=== PATIENT | female | born 1990 | race Caucasian/White ===

== ENCOUNTER 2023-03-05 06:11 | Emergency (ER) | payer OTHER ==
[2023-03-05 07:39] LABS: #Eosinphils 0.1 10x3/uL (0.0-0.5); #Monocytes 0.4 10x3/uL (0.0-1.1); #Neutrophils 3.7 10x3/uL (1.5-8.4); %Basophils 0.2 % (0.0-2.0); %Lymphocytes 27.6 % (18.0-47.0); %Monocytes 7.3 % (0.0-10.0); %Neutrophils 62.7 % (40.0-75.0); Hemoglobin 11.9 g/dL (12.0-15.5); Mean Corpuscular HGB CONC 32.6 g/dL (32.0-36.0); Mean Corpuscular Volume 91.9 fl (81.6-98.3); Mean Platelet Volume 10.1 fl (7.4-10.4); Platelet Count 227 10x3/uL (150-450); RBC Distribution Width 12.8 % (11.5-14.5); Red Blood Cell (RBC) Count 3.97 10x6/uL (3.90-5.03); White Blood Cell (WBC) Count 5.9 10x3/uL (3.5-10.5)
[2023-03-05 08:02] LABS: BHCG - Serum POSITIVE (NEGATIVE)
[2023-03-05 08:03] LABS: Pregs Control Background? CLEAR/WHITE (CLR/WHITE); Pregs Control Bar Appear? YES (CONTROL BAR)
[2023-03-05 08:13] LABS: ALT (SGPT) 10 U/L (8-55); AST (SGOT) 13 U/L (5-34); Albumin 3.7 g/dL (3.5-5.0); Alkaline Phosphatase 72 U/L (40-110); Anion Gap 12 mmol/L (10-20); BUN (Urea Nitrogen) 13 mg/dL (7.0-18.7); Bilirubin, Total 0.3 mg/dL (0.2-1.2); Calc. Creatinine Clearance 0 mL/min (70-130); Calcium 9.1 mg/dL (7.8-10.44); Carbon Dioxide 25 mmol/L (22-29); Chloride 108 mmol/L (98-107); Estimated GFR 120; Globulin 2.6 g/dL (2.4-3.5); Glucose 85 mg/dL (70-105); Potassium 4.1 mmol/L (3.5-5.1); Protein, Total 6.3 g/dL (6.0-8.3); Sodium 141 mmol/L (136-145)
== END 2023-03-05 08:41 | disposition home or self-care (01) ==
LOC: CSHERS 06:11
DX: O72.1 Other immediate postpartum hemorrhage (principal)
CPT/HCPCS: 76856; 80053; 84703; 85025; 86850; 86900; 86901

== ENCOUNTER 2023-03-07 13:46 | Emergency (ER) | payer OTHER ==
[2023-03-07] MEDS ORDERED: Lorazepam 2 MG/ML VIAL ONE (14:22)
[2023-03-07 15:27] LABS: #Eosinphils 0.1 10x3/uL (0.0-0.5); #Monocytes 0.6 10x3/uL (0.0-1.1); #Neutrophils 6.6 10x3/uL (1.5-8.4); %Basophils 0.1 % (0.0-2.0); %Eosinophils 1.5 % (0.0-6.0); %Monocytes 5.9 % (0.0-10.0); Hemoglobin 12.8 g/dL (12.0-15.5); Mean Corpuscular HGB CONC 32.7 g/dL (32.0-36.0); Mean Corpuscular Hemoglobin 29.8 pg (27.0-33.0); Mean Corpuscular Volume 91.2 fl (81.6-98.3); Platelet Count 254 10x3/uL (150-450); RBC Distribution Width 12.7 % (11.5-14.5); White Blood Cell (WBC) Count 9.3 10x3/uL (3.5-10.5)
[2023-03-07] MEDS ORDERED: Morphine 4 MG/ML VIAL ONE (15:42)
[2023-03-07] MEDS ORDERED: Ondansetron PF 4 MG/2 ML Vial ONE (15:43)
[2023-03-07 15:49] LABS: ALT (SGPT) 11 U/L (8-55); AST (SGOT) 14 U/L (5-34); Albumin 4.4 g/dL (3.5-5.0); Alkaline Phosphatase 72 U/L (40-110); Anion Gap 15 mmol/L (10-20); BUN (Urea Nitrogen) 14 mg/dL (7.0-18.7); Bilirubin, Total 0.2 mg/dL (0.2-1.2); Calc. Creatinine Clearance 0 mL/min (70-130); Calcium 9.8 mg/dL (7.8-10.44); Carbon Dioxide 24 mmol/L (22-29); Chloride 105 mmol/L (98-107); Estimated GFR 112; Globulin 3.3 g/dL (2.4-3.5); Glucose 88 mg/dL (70-105); Lipase 17 U/L (8-78); Potassium 3.8 mmol/L (3.5-5.1); Protein, Total 7.7 g/dL (6.0-8.3); Sodium 140 mmol/L (136-145)
[2023-03-07 16:00] LABS: Bilirubin Neg (Negative); Blood, Urine 250 (Negative); Glucose, Urine (Dipstick) Normal (Negative); Ketone, Urine Negative (Negative); Leukocyte Negative (Negative); Nitrite Negative (Negative); Protein, Urine (Dipstick) Negative (Neg-Trace); Urobilinogen Normal mg/dL (Less than 2); pH, Urine 6.5 (5.0-9.0)
[2023-03-07 16:01] LABS: Clarity Clear (Clear)
[2023-03-07 16:51] LABS: Bacteria/HPF None Seen HPF (None Seen); RBC/HPF None Seen HPF (0-3); Squamous Epithelial 0-3 HPF (0-3); WBC/HPF 0-3 HPF (0-3)
== END 2023-03-07 17:16 | disposition home or self-care (01) ==
LOC: CSHERS 13:46
DX: O72.1 Other immediate postpartum hemorrhage (principal)
CPT/HCPCS: 76856; 80053; 81003; 81015; 83690; 85025; 96361; 96374; 96375; J2060; J2270; J2405

== ENCOUNTER 2023-03-12 11:13 | Observation (INO) | payer OTHER ==
[2023-03-12 11:51] LABS: Hemoglobin 9.9 g/dL (12.0-15.5); Mean Corpuscular HGB CONC 32.1 g/dL (32.0-36.0); Mean Corpuscular Hemoglobin 29.9 pg (27.0-33.0); Mean Corpuscular Volume 93.1 fl (81.6-98.3); Mean Platelet Volume 10.2 fl (7.4-10.4); Platelet Count 276 10x3/uL (150-450); RBC Distribution Width 12.6 % (11.5-14.5); Red Blood Cell (RBC) Count 3.31 10x6/uL (3.90-5.03)
[2023-03-12 12:00] VITALS: BMI 41.9
[2023-03-12 12:02] LABS: Bilirubin Neg (Negative); Blood, Urine 250 (Negative); Clarity Cloudy (Clear); Glucose, Urine (Dipstick) Normal (Negative); Ketone, Urine Negative (Negative); Leukocyte Negative (Negative); Nitrite Negative (Negative); Protein, Urine (Dipstick) 100 mg/dl (Neg-Trace); Urobilinogen Normal mg/dL (Less than 2)
[2023-03-12 12:19] LABS: RBC/HPF Greater than 50 HPF (0-3)
[2023-03-12 12:20] LABS: Bacteria/HPF None Seen HPF (None Seen); Squamous Epithelial None Seen HPF (0-3); WBC/HPF None Seen HPF (0-3)
[2023-03-12] MEDS ORDERED: CEFAZOLIN 2 GM VIAL ONE (13:01)
[2023-03-12] MEDS ORDERED: Carboprost 250 MCG/ML AMP ONE (13:43)
[2023-03-12] MEDS ORDERED: Meperidine HCl/PF 25 MG/ML VIAL ONE (14:17)
[2023-03-12 15:22] LABS: Hemoglobin 9.2 g/dL (12.0-15.5)
[2023-03-12] MEDS ORDERED: Methylergonovine 0.2 MG TAB PO SCH ×2 (16:30→19:00)
[2023-03-12] MEDS ORDERED: Sertraline 100 MG TAB PO SCH (21:00)
[2023-03-13 07:23] LABS: Hemoglobin 7.1 g/dL (12.0-15.5)
[2023-03-13] MEDS ORDERED: Prenatal Vitamin 1 TAB PO SCH (11:00)
[2023-03-13] MEDS ORDERED: Iron Polysaccharides Complex 150 MG CAP PO SCH (11:00)
[2023-03-13 11:12] VITALS: BP 123/56; TEMP 97.9
[2023-03-13] MEDS ORDERED: Methylergonovine 0.2 MG TAB PO SCH (19:00)
[2023-03-14] MEDS ORDERED: Iron Polysaccharides Complex 150 MG CAP PO SCH (08:00)
[2023-03-14] MEDS ORDERED: Prenatal Vitamin 1 TAB PO SCH (09:00)
== END 2023-03-13 13:59 | disposition home or self-care (01) ==
LOC: CJX 11:13 → CSHPED 18:21
PROVIDERS: ADMIT Obstetrics & Gynecology; ATTEND Obstetrics & Gynecology
PROC: 10D17ZZ Extraction of Products of Conception, Retained, Via Natural or Artificial Opening (ICD-10-PCS; principal; 2023-03-13)
DX: O72.2 Delayed and secondary postpartum hemorrhage (principal); O73.1 Retained portions of placenta and membranes, without hemorrhage; N93.9 Abnormal uterine and vaginal bleeding, unspecified; N85.2 Hypertrophy of uterus; F41.9 Anxiety disorder, unspecified; F32.A Depression, unspecified; D62 Acute posthemorrhagic anemia; Z98.890 Other specified postprocedural states; Z88.8 Allergy status to other drugs, medicaments and biological substances; Z87.892 Personal history of anaphylaxis
CPT/HCPCS: 36415; 81001; 84702; 85014; 85018; 85027; 86850; 86900; 86901; 88305; J2175; J3490